=== PATIENT | female | born 1990 | race Caucasian/White ===

== ENCOUNTER 2019-08-04 12:41 | Outpatient (REF) | payer OTHER, SELFPAY | END 2019-08-04 13:01 | LOC: LBN 12:41 | PROVIDERS: PCP Nurse Practitioner Family; Visit Provider Nurse Practitioner Women's Health | DX: R35.0 Frequency of micturition (principal) | CPT/HCPCS: 87086 ==

== ENCOUNTER 2020-10-18 11:14 | Outpatient (REF) | payer OTHER, SELFPAY ==
--- NOTE | 2020-10-18 10:40 | PAPFT_PTH ---
PATIENT: Radha Harris LOC: [facility] U#:[id number] AGE/SX: 30/F ROOM: RE10/18/[address]: Eli Lowery NP : 1990 BED: DIS: 10/18/2020 SPEC #: [id number] RECD: 10/18/20 12:55 STATUS: AUREARoxane REDevon #: [id number] HARINI: 10/18/20 10:[address]: Eli Lowery NP DEPT: [facility] Cytology RECD BY: Sierra Clifton ENTERED: 10/18/20 12:56 SP TYPE: PAPFT SILVIA DR: Unknown,Unknown Tissues: 1 - CX/ENDOCX FOR PAP SMEARS Procedures: PAP THIN PREP/[facility] Screening HPV DNA PROBE Comments: [id number]
== END 2020-10-18 11:15 | disposition home or self-care (01) ==
LOC: LBN 11:14
PROVIDERS: Visit Provider Nurse Practitioner Women's Health
DX: Z12.4 Encounter for screening for malignant neoplasm of cervix (principal); Z11.51 Encounter for screening for human papillomavirus (HPV)
CPT/HCPCS: 88142; 87624

== ENCOUNTER 2024-06-09 15:09 | Outpatient (REF) | payer BC, SELFPAY ==
[2024-06-09 21:11] LABS: HCT 43.1 % (36.0-46.0); HGB 14.4 g/dL (11.2-15.7); MCH 31.4 pg (27.0-33.0); MCHC 33.4 % (32.0-36.0); MCV 94 fL (80-95); MPV 9.4 fL (8.0-11.0); Platelet Count 251 10^3/uL (130-400); RBC 4.59 10^6/uL (3.93-5.22); RDW 13.5 % (11.7-14.6); RDW-SD 46.7 fL; WBC 5.98 10^3/uL (4.4-10.8)
[2024-06-09 21:35] LABS: TSH (W/Ref FT4) 1.14 uIU/mL (0.36-3.74)
== END 2024-06-09 15:10 | disposition home or self-care (01) ==
LOC: LBN 15:09
PROVIDERS: PCP Nurse Practitioner Family; Visit Provider Nurse Practitioner Family
DX: F41.8 Other specified anxiety disorders (principal); R53.83 Other fatigue
CPT/HCPCS: 85027; 84443

== ENCOUNTER 2025-06-22 11:24 | Outpatient (REF) | payer BC, SELFPAY ==
--- NOTE | 2025-06-22 11:15 | PAPFT_PTH ---
PATIENT: Radha Harris LOC: [facility] U#:[id number] AGE/SX: 34/F ROOM: RE06/22/[address]: Eli Lowery NP : 1990 BED: DIS: 06/22/2025 SPEC #: [id number] RECD: 06/22/25 18:43 STATUS: AUREARoxane REDevon #: [id number] HARINI: 06/22/25 11:[address]: Eli Lowery NP DEPT: [facility] Cytology RECD BY: Sierra Clifton ENTERED: 06/22/25 18:44 SP TYPE: PAPFT OTHR DR: Silvestre Brito DNP Tissues: 1 - CX/ENDOCX FOR PAP SMEARS Procedures: PAP THIN PREP/[facility] Screening HPV DNA PROBE Comments: [id number] (HPV 16 & 18/45)
== END 2025-06-22 11:25 | disposition home or self-care (01) ==
LOC: LBN 11:24
PROVIDERS: PCP Nurse Practitioner Family; Visit Provider Nurse Practitioner Women's Health
DX: Z12.4 Encounter for screening for malignant neoplasm of cervix (principal)
CPT/HCPCS: 88142; 87624